=== PATIENT | female | born 1960 | race Two or more races ===

== ENCOUNTER 2019-07-25 10:47 | Outpatient (AMBR) | payer MEDICAID, SELFPAY ==
--- NOTE | 2019-07-25 13:34 | PT.ODS1RPT ---
PT OP Progress/Discharge Note Date of Service: July 25, 2019 Progress Note/DC Note Progress Note/Discharge Note: DC Note Patient Information Visit Reasons: right shoulder pain Service Continue Service or Discharge: Discharge Discharge Date: 07/25/19 Status Subjective: The shoulder is still painful and not better since starting therapy. Objective: R shoulder AroM: Ff: 105 deg Abd: 90 deg Erot: 55 deg Strength: 3+/5 in all planes within available ROM PROM: endrange pain Drop arm: positive Painful arc: positive Assessment: Pt has attended 5/5 Rx visits and made limited progress with therapy goals due to continued pain and weakness. Pt has not improved ROM, strength or OH reach. Pt may benefit from further diagnostic imaging such as MRI of R shoulder. Plan: Pt is discharged to provider for further workup Office Procedures PT Procedures PT Date of Service: 07/25/19 OP Electrical Stimul Unattended: Yes Therapeutic Exercise 15 minutes: Yes
== END 2019-08-23 23:59 | disposition home or self-care (01) ==
PROVIDERS: PCP Registered Nurse; Referring Provider Registered Nurse; Visit Provider Physician Assistant
DX: M25.511 Pain in right shoulder (principal)
CPT/HCPCS: 97014; 97110; G0283

== ENCOUNTER → 2024-06-24 | Outpatient (CLI) | payer MEDICAID, SELFPAY ==
--- NOTE | 2024-06-24 16:30 | XR_ITS ---
Examination: Breast ultrasound, unilateral, right Date and time of exam: June 24, 2024 at 1652 hours INDICATIONS: Multiple right breast nodules, on breast sonogram January 22, 2024, 3:00 nodule 17 mm, 4:00 nodule 18 mm, 6:00 nodule 22 mm, 9:00 nodule 17 mm Technique: Real-time monroy scale ultrasonographic imaging performed right breast including all 4 quadrants as well as nipple retroareolar and axillary region. Findings: 3:00 oval mass hyperechoic circumscribed 14 x 14 mm 4:00 oval mass circumscribed hyperechoic 13 x 14 mm 6:00 oval mass hyperechoic 20 x 17 mm circumscribed 9:00 oval mass hyperechoic 16 x 18 mm circumscribed 11:00 oval mass hyperechoic 12 x 11 mm circumscribed IMPRESSION: BI-RADS Category 2: Benign findings
== END | disposition home or self-care (01) ==
PROVIDERS: PCP Obstetrics & Gynecology; Referring Provider Obstetrics & Gynecology; Visit Provider Obstetrics & Gynecology
DX: N63.15 Unspecified lump in the right breast, overlapping quadrants (principal); N63.11 Unspecified lump in the right breast, upper outer quadrant; N63.14 Unspecified lump in the right breast, lower inner quadrant
CPT/HCPCS: 76641

== ENCOUNTER → 2024-12-06 | Outpatient (BNVA) | payer MEDICAID, SELFPAY | END | disposition home or self-care (01) | PROVIDERS: PCP Nurse Practitioner Family; Referring Provider Nurse Practitioner Family; Visit Provider Urology | DX: N20.0 Calculus of kidney (principal); G89.4 Chronic pain syndrome; R10.2 Pelvic and perineal pain; E78.00 Pure hypercholesterolemia, unspecified | CPT/HCPCS: 81003; 99212; G0463 ==